=== PATIENT | male | born 1980 | race Caucasian/White ===

== ENCOUNTER → 2016-06-26 | Outpatient (CLI) | payer BC ==
--- NOTE | 2016-06-26 08:43 | US ---
EXAMINATION TYPE: US venous doppler duplex LE RT DATE OF EXAM: 06/26/2016 8:30 AM COMPARISON: US in PACS CLINICAL HISTORY: I82.409Acute embolism and thrombosis of unspecifi. History of DVT right leg, pt cu rrently on blood thinners, progression study SIDE PERFORMED: Right VESSELS IMAGED: External Iliac Vein (EIV) Common Femoral Vein Deep Femoral Vein Greater Saphenous Vein * Femoral Vein Popliteal Vein Small Saphenous Vein * Proximal Calf Veins (* superficial vessels) No popliteal fossa lesion is seen. Right Leg: No evidence of acute DVT/ Probable non-occluding chronic thrombus from distal fem vein an d entire pop veins/ Improvement from previous study IMPRESSION: 1. THIS EXAMINATION IS NEGATIVE FOR ACUTE DVT WITHIN THE RIGHT LEG. 2. THIS EXAMINATION IS POSITIVE FOR CHRONIC DVT WITHIN THE RIGHT FEMORAL VEIN AND POPLITEAL VEINS.
== END | disposition home or self-care (01) ==
LOC: RADUSWWP 08:10
PROVIDERS: ATTEND Family Medicine
DX: I82.409 Acute embolism and thrombosis of unspecified deep veins of unspecified lower extremity (principal)

== ENCOUNTER → 2016-09-22 | Outpatient (CLI) | payer BC ==
--- NOTE | 2016-09-22 10:40 | US ---
EXAMINATION TYPE: US venous doppler duplex LE RT DATE OF EXAM: 09/22/2016 10:14 AM COMPARISON US June 26, 2016 CLINICAL HISTORY: I82.409 DVT RLE. HX OF DVT SIDE PERFORMED: Right TECHNIQUE: The lower extremity deep venous system is examined utilizing real time linear array sonog anh with graded compression, doppler sonography and color-flow sonography. VESSELS IMAGED: External Iliac Vein (EIV) Common Femoral Vein Deep Femoral Vein Greater Saphenous Vein * Femoral Vein Popliteal Vein Small Saphenous Vein * Proximal Calf Veins (* superficial vessels) Right Leg: NON-OCCLUSIVE DVTRIGHT FEMORAL DISTAL EXTENDING INTO POPITEAL VEIN. There is persistent thrombus in the distal right superficial femoral vein extending through popliteal vein in the right lower extremity. No significant change from most recent study. IMPRESSION: No significant interval change, chronic partial occlusive thrombus right distal superfici al femoral vein through popliteal vein is redemonstrated
== END | disposition home or self-care (01) ==
LOC: RADUSWWP 09:33
PROVIDERS: ATTEND Family Medicine
DX: I82.511 Chronic embolism and thrombosis of right femoral vein (principal)

== ENCOUNTER → 2018-09-18 | Outpatient (CLI) | payer BC ==
--- NOTE | 2018-09-18 13:27 | US ---
EXAMINATION TYPE: US venous doppler duplex LE LT DATE OF EXAM: 09/18/2018 1:19 PM COMPARISON: NONE CLINICAL HISTORY: I82.409 Deep venous thrombosis. SIDE PERFORMED: TECHNIQUE: The lower extremity deep venous system is examined utilizing real time linear array sonog anh with graded compression, doppler sonography and color-flow sonography. VESSELS IMAGED: External Iliac Vein (EIV) Common Femoral Vein Deep Femoral Vein Greater Saphenous Vein * Femoral Vein Popliteal Vein Small Saphenous Vein * Proximal Calf Veins (* superficial vessels) Left Leg: Negative for DVT Patient has a superficial clot at his ankle and area of pain. IMPRESSION: 1. No evidence of DVT 2. Within the superficial femoral vein near the level the ankle there appears to be evidence of super ficial venous thrombosis.
== END | disposition home or self-care (01) ==
LOC: RADUSWWP 12:48
PROVIDERS: ATTEND Family Medicine
DX: I82.409 Acute embolism and thrombosis of unspecified deep veins of unspecified lower extremity (principal)

== ENCOUNTER → 2020-05-19 | Outpatient (CLI) | payer BC ==
--- NOTE | 2020-05-19 08:25 | US ---
EXAMINATION TYPE: US venous doppler duplex LE DATE OF EXAM: 05/19/2020 7:25 AM COMPARISON: US 09/22/2016 CLINICAL HISTORY: I82.409 DVT lower extremity. History of DVT right leg SIDE PERFORMED: Bilateral TECHNIQUE: The lower extremity deep venous system is examined utilizing real time linear array sonog anh with graded compression, doppler sonography and color-flow sonography. VESSELS IMAGED: Common Femoral Vein Deep Femoral Vein Greater Saphenous Vein * Femoral Vein Popliteal Vein Small Saphenous Vein * Proximal Calf Veins (* superficial vessels) Right Leg: Probable chronic DVT visualized right popliteal vein Left Leg: Negative for DVT IMPRESSION: 1. Probable chronic DVT right popliteal vein.
== END | disposition home or self-care (01) ==
LOC: RADUSWWP 06:56
PROVIDERS: ATTEND Family Medicine
DX: I82.409 Acute embolism and thrombosis of unspecified deep veins of unspecified lower extremity (principal)
CPT/HCPCS: 93970

== ENCOUNTER → 2022-04-26 | Outpatient (CLI) | payer BC ==
--- NOTE | 2022-04-26 17:11 | US ---
EXAMINATION TYPE: US venous doppler duplex LE RT DATE OF EXAM: 04/26/2022 4:47 PM COMPARISON: 05/19/2020 CLINICAL HISTORY: LLE; I82.409. h/o DVT in 2017 after injury, patient said doctor wanted to assess ho w "clot is doing", not on thinners now SIDE PERFORMED: Right TECHNIQUE: The lower extremity deep venous system is examined utilizing real time linear array sonog anh with graded compression, doppler sonography and color-flow sonography. VESSELS IMAGED: Common Femoral Vein Deep Femoral Vein Greater Saphenous Vein * Femoral Vein Popliteal Vein Small Saphenous Vein * Proximal Calf Veins (* superficial vessels) Right Leg: Chronic DVT seen within distal popiteal vein; echogenic debris with good color fill and c ompression. The remainder of the visualized vessels appear within normal limits. IMPRESSION: Chronic appearing deep vein thrombosis of the right popliteal vein.
== END | disposition home or self-care (01) ==
LOC: RADUSWWP 16:27
PROVIDERS: ATTEND Family Medicine
DX: I82.431 Acute embolism and thrombosis of right popliteal vein (principal); I82.531 Chronic embolism and thrombosis of right popliteal vein

== ENCOUNTER → 2023-02-26 | Outpatient (CLI) | payer BC ==
[2023-02-26 16:09] LABS: HCT 43.3 % (39.6-50.0); HGB 13.8 g/dL (13.0-17.0); MCHC 31.9 g/dL (32.0-37.0); MCV 97.3 FL (80.0-97.0); Mean Platelet Volume 12.2 FL (9.5-12.2); NRBC Per 100 WBC 0 X 10*3/uL (0.00-0.01); Platelet Count 191 X 10*3/uL (140-440); RBC 4.45 X 10*6/uL (4.40-5.60); RDW 13.5 % (11.5-14.5); WBC 7.71 X 10*3/uL (4.50-10.00)
[2023-02-26 16:57] LABS: % Iron Saturation 22.12 (15.00-50.00); ALT 38 U/L (10-49); AST 23 U/L (14-35); Albumin 4.3 g/dL (3.8-4.9); Albumin/Globulin Ratio 2.05 Ratio (1.60-3.17); Alkaline Phosphatase 82 U/L (41-126); BUN/Creat Ratio 13.73 Ratio (12.00-20.00); Blood Urea Nitrogen 15.1 mg/dL (9.0-27.0); Calcium 9.9 mg/dL (8.7-10.3); Carbon Dioxide 26.9 mmol/L (21.6-31.8); Chloride 105 mmol/L (96-109); Globulin 2.1 g/dL (1.6-3.3); Glucose 88 mg/dL (70-110); Iron 73 UG/DL (65-175); LDL Cholesterol,Calculated 126.7 mg/dL (0.0-131.0); Magnesium 2.1 mg/dL (1.5-2.4); Phosphorus 3.4 mg/dL (2.4-5.1); Potassium 4.2 mmol/L (3.5-5.5); Sodium 143 mmol/L (135-145); Total Bilirubin 0.5 mg/dL (0.3-1.2); Total Iron Binding Capacity 330 UG/DL (228-460); Total Protein 6.4 g/dL (6.2-8.2); VLDL Calculation 19.22 mg/dL (5.00-40.00)
[2023-02-27 12:11] LABS: Zinc, Serum 89 ug/dL (60-130)
[2023-02-28 07:19] LABS: Vit B1(Thiamine) 65 ug/L (38-122)
== END | disposition home or self-care (01) ==
LOC: LABWHC1 07:47
PROVIDERS: ATTEND Surgery
DX: D51.8 Other vitamin B12 deficiency anemias (principal); E55.9 Vitamin D deficiency, unspecified; K90.9 Intestinal malabsorption, unspecified; Z98.84 Bariatric surgery status
CPT/HCPCS: 36415; 80053; 80061; 82232; 82306; 82525; 82607; 82728; 82746; 83036; 83540; 83550; 83735; 84100; 84207; 84255; 84425; 84443; 84590; 84630; 85027

== ENCOUNTER → 2023-10-31 | Outpatient (CLI) | payer BC ==
--- NOTE | 2023-10-31 09:46 | MR ---
EXAMINATION TYPE: MR lumbar spine wo con DATE OF EXAM: 10/31/2023 COMPARISON: None HISTORY: Lower back pain, RLE radiculopathy x 1.5 years. No trauma. TECHNIQUE: Multiplanar, multisequence images of the lumbar spine were acquired without IV contrast. FINDINGS: The lumbar vertebral bodies do have preserved heights and alignment. Minimal multilevel d isc desiccation is present. The conus medullaris and the distal spinal cord do appear unremarkable w ith regards to their signal intensity and morphology. L1-L2: No significant disc pathology is identified. The spinal canal and neural foramen are patent. L2-L3: No significant disc pathology is identified. The spinal canal and neural foramen are patent. L3-L4: No significant disc pathology is identified. The spinal canal and neural foramen are patent. L4-L5: No disc herniation or significant central canal stenosis. Bilateral facet arthropathy. Neural canals are mildly narrowed bilaterally. L5-S1: Broad-based disc bulge without significant mass effect upon the thecal sac. Annular fissure i dentified along the posterior aspect. Facet joints are enlarged. Mild right neural foraminal stenosis . Left neural foramen is patent. Other significant findings: None. IMPRESSION: 1. No definitive evidence for disc herniation or significant spinal canal stenosis. 2. Mild degenerative disc disease at L5-S1 with facet arthropathy at L4-L5 and L5-S1. Mild right segun ral foraminal stenosis at L5-S1 and bilaterally at L4-L5.
== END | disposition home or self-care (01) ==
LOC: RADMRIMAIN 07:08
PROVIDERS: ATTEND Family Medicine
DX: M48.061 Spinal stenosis, lumbar region without neurogenic claudication (principal); M47.26 Other spondylosis with radiculopathy, lumbar region; M51.37 Other intervertebral disc degeneration, lumbosacral region; M51.16 Intervertebral disc disorders with radiculopathy, lumbar region; R20.0 Anesthesia of skin
CPT/HCPCS: 72148